=== PATIENT | female | born 2000 | race African-American/Black ===

== ENCOUNTER 2024-04-17 20:19 | Emergency (ER) | payer SELFPAY ==
[2024-04-17 20:28] VITALS: BP 120/90; PULSE 61; TEMP 36.7; O2SAT 95; BMI 28.1
[2024-04-17 20:47] LABS: Bilirubin Urine NEGATIVE (NEGATIVE); Blood Urine NEGATIVE (NEGATIVE); Clarity Urine CLEAR (CLEAR); Color Urine LT. YELLOW (YELLOW); Glucose Urine UA NEGATIVE (NEGATIVE); Ketones Urine NEGATIVE (NEGATIVE); Leukocyte Esterase Urine NEGATIVE (NEGATIVE); Nitrite Urine NEGATIVE (NEGATIVE); Protein Urine NEGATIVE (NEG/TRACE); Specific Gravity Urine >=1.030 (1.005-1.025); Urine Microscopic Indicated NO; Urobilinogen Urine 0.2 EU/dL (0.2-1.0)
--- NOTE | 2024-04-17 22:37 | ED.FEMALEGU1 ---
HPI - Female Genitourinary General Chief complaint: Urogenital-Female Stated complaint: FOOT PAIN Time Seen by Provider: 04/17/24 22:29 Source: patient Mode of arrival: walk-in Limitations: no limitations History of Present Illness HPI Narrative: 23-year-old female presents for vaginal discharge. She has had it for a few days and describes it as thick, white cottage cheese. No malodor. She has not been on antibiotics recently. She is not concerned about STD but wanted to get tested to be sure. No fever or vomiting. Related Data Allergies Allergy/AdvReac Type Severity Reaction Status Date / Time No Known Drug Allergies Allergy Verified 04/17/24 20:28 Review of Systems ROS Narrative A ten point review of systems is negative except as noted above. PFSH PFSH Social History Little interest or pleasure in doing things: not at all Feeling down, depressed, or hopeless: not at all Exam Narrative Exam Narrative: Nurses note and vital signs reviewed and patient is not hypoxic. General: The patient appears well and in no apparent distress. Patient is resting comfortably on cart. Skin: Warm, dry, no pallor noted. There is no rash noted. Head: Normocephalic, atraumatic Eye: Normal conjunctiva, no drainage Ears, Nose, Mouth, and Throat: oral mucosa is moist. Nares patent. Cardiovascular: Regular Rate and Rhythm Respiratory: Patient is in no distress, no accessory muscle use, lungs are clear to auscultation, no wheezing, rales or rhonchi Back: non-tender GI: Soft and nontender Musculoskeletal: The patient has no evidence of calf tenderness, no pitting edema, symmetrical pulses noted bilaterally Neurological: A&O, normal speech Psychiatric: Cooperative Constitutional Vital Signs, click to edit/add: Last Vital Signs Temp 98.1 F 04/17/24 20:28 Pulse 61 04/17/24 20:28 Resp 18 04/17/24 20:28 BP 120/90 04/17/24 20:28 Pulse Ox 95 04/17/24 20:28 O2 Del Method Room Air 04/17/24 20:28 Course Vital Signs Vital signs: Vital Signs Temperature 98.1 F 04/17/24 20:28 Pulse Rate 61 04/17/24 20:28 Respiratory Rate 18 04/17/24 20:28 Blood Pressure 120/90 04/17/24 20:28 Pulse Oximetry 95 12/22/24 20:28 Oxygen Delivery Method Room Air 04/17/24 20:28 Temperature 98.1 F 04/17/24 20:28 Pulse Rate 61 04/17/24 20:28 Respiratory Rate 18 04/17/24 20:28 Blood Pressure 120/90 04/17/24 20:28 Pulse Oximetry 95 04/17/24 20:28 Oxygen Delivery Method Room Air 04/17/24 20:28 MDM - Female Genitourinary MDM Narrative Medical decision making narrative: Her description is consistent with yeast vaginitis and she was treated with Diflucan here. GC and Chlamydia tests were also sent and are pending. She would need to be contacted if positive. Treatment diagnosis and follow-up were discussed with the patient. Differential Diagnosis Differential diagnosis: Likely urinary tract infection, bacterial vaginosis and other (Yeast vaginitis) Lab Data Attestation: I reviewed the patient's lab results. Labs: Lab Results 04/17/24 Range/Units 20:39 Urine Color Lt. yellow (YELLOW) Urine Clarity Clear (CLEAR) Urine pH 6.0 (5.0-9.0) Ur Specific [place] >=1.030 A (1.005-1.025) Urine Protein Negative (NEG/TRACE) mg/dL Urine Glucose (UA) Negative (NEGATIVE) mg/dL Urine Ketones Negative (NEGATIVE) mg/dL Urine Occult Blood Negative (NEGATIVE) Urine Nitrite Negative (NEGATIVE) Urine Bilirubin Negative (NEGATIVE) Urine Urobilinogen 0.2 (0.2-1.0) EU/dL Ur Leukocyte Esterase Negative (NEGATIVE) Discharge Plan Discharge Chief Complaint: Urogenital-Female Clinical Impression: Vaginitis Patient Disposition: Home, Self-Care Time of Disposition Decision: 22:35 Condition: Good Mode of Transportation: Private Vehicle Print Language: Khmer Instructions: Bacterial Vaginosis (ED), Vaginal Discharge (ED) Referrals: SEPIDEH VERA [Primary Care Provider] - 1 week
[2024-04-17 22:45] LABS: HCG Qualitative Urine* NEGATIVE (NEGATIVE); Internal Control Within Normal Limits
[2024-04-17] MEDS: FLUCONAZOLE 150 MG TABLET PO (22:52)
== END 2024-04-17 22:58 | disposition home or self-care (01) ==
PROVIDERS: Emergency Provider Emergency Medicine; PCP Family Medicine
DX: N76.0 Acute vaginitis (principal)
CPT/HCPCS: 81003; 84703; 99283